=== PATIENT | female | born 1985 | race Two or more races ===

== ENCOUNTER 2024-08-24 06:06 | Emergency (ER) | payer MEDICAID, SELFPAY ==
[2024-08-24 06:13] VITALS: BP 136/98; PULSE 111; RESP 19; TEMP 36.9; O2SAT 96; BMI 45.1
--- NOTE | 2024-08-24 06:21 | XR_ITS ---
Examination: PA lateral chest 2 views Technique: Upright PA lateral chest 2 views Exam date and time: September 03, 2024 0628 hrs. Comparison May 12, 2021 Indications: Onset chest pain today Findings: Normal heart size Mild elevation right hemidiaphragm No pneumonia or pulmonary edema The osseous structures are intact Impression: No active disease
--- NOTE | 2024-08-24 06:21 | EKG_ITS ---
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
--- NOTE | 2024-08-24 06:21 | PD.EDRME ---
Rapid Medical Screening Exam RME Arrival date/time: 08/24/24 06:06 39-year-old female with past medical history of diabetes and high blood pressure presents emergency department complaining near fainting episode, dry mouth, and mild chest pain since this morning. Chief Complaint: Syncope / Near Syncope Time Seen by Provider: 08/24/24 06:26 Vital signs: Vital Signs Temperature 98.4 F 08/24/24 06:13 Pulse Rate 111 H 08/24/24 06:13 Respiratory Rate 19 08/24/24 06:13 Blood Pressure 136/98 H 08/24/24 06:13 Pulse Oximetry (%) 96 08/24/24 06:13 Oxygen Delivery Method Room Air 08/24/24 06:13
--- NOTE | 2024-08-24 06:56 | PD.EDRME ---
Rapid Medical Screening Exam RME Arrival date/time: 08/24/24 06:06 39-year-old female with past medical history of diabetes and hypertension presents emergency department complaining of near fainting episode, dry mouth, and mild chest pain that started this morning. Chief Complaint: Syncope / Near Syncope Time Seen by Provider: 08/24/24 06:26 Vital signs: Vital Signs Temperature 98.4 F 08/24/24 06:13 Pulse Rate 111 H 08/24/24 06:13 Respiratory Rate 19 08/24/24 06:13 Blood Pressure 136/98 H 08/24/24 06:13 Pulse Oximetry (%) 96 08/24/24 06:13 Oxygen Delivery Method Room Air 08/24/24 06:13
[2024-08-24 07:32] LABS: Basophils % (Auto) 1 % (0-2.5); Eosinophils # (Auto) 0.2 Thou/mm3 (0.0-0.5); Eosinophils % (Auto) 4 % (0-10); Hematocrit 42.5 % (36.0-46.0); Hemoglobin 14.6 g/dL (12.0-16.0); Immature Granulocytes % (Auto) 0 % (0-0); Immature Granulocytes Auto 0.01 Thou/mm3 (0.00-0.00); Lymphocytes # (Auto) 1.5 Thou/mm3 (1.0-4.8); Lymphocytes % (Auto) 23 % (10-50); Mean Corpuscular HGB Conc 34.4 g/dl (31.0-37.0); Mean Corpuscular Volume 79 fL (80-100); Monocytes # (Auto) 0.6 Thou/mm3 (0.0-0.8); Monocytes % (Auto) 10 % (0-12); Neutrophils % (Auto) 63 % (37-80); Nucleated Red Blood Cell % 0 /100 WBC (0); Platelet Count 288 Thou/mm3 (140-440); RDW Standard Deviation 40.2 fL (36.4-46.3); White Blood Count 6.4 Thou/mm3 (3.6-11.0)
[2024-08-24 07:34] LABS: Amphetamine/Methamp Scrn,U Negative (Negative); Barbiturate Screen,Urine Negative (Negative); Benzodiazepines Screen,Urine Negative (Negative); Benzoylecgonine Screen, Ur Negative (Negative); Fentanyl Screen,Urine Negative (Negative); Opiate Screen,Urine Negative (Negative); THC Screen,Urine Negative (Negative)
[2024-08-24 07:59] LABS: Alanine Aminotransferase 56 U/L (10-49); Albumin, Serum 4.7 gm/dL (3.5-5.0); Albumin/Globulin Ratio 1.6 (1.2-2.2); Alkaline Phosphatase 75 U/L (46-116); Anion Gap 11 (7-16); Aspartate Amino Transferase 39 U/L (0-34); BUN/Creatinine Ratio 10 Ratio (12-20); Bilirubin,Total 0.5 mg/dL (0.3-1.2); Blood Urea Nitrogen 7 mg/dL (9-23); Calcium 9.4 mg/dL (8.3-10.6); Calcium (Corrected) 9.4 mg/dL (8.5-10.1); Carbon Dioxide 21.8 mMol/L (20.0-31.0); Chloride 103 mMol/L (98-107); Creatinine (Component) 0.7 mg/dL (0.6-1.3); Estimated Creatinine Clearance 122.7 mL/min (>60); Globulin 2.9 gm/dL (2.3-3.5); Glucose 106 mg/dL (74-106); Osmolality,Calculated 269 (275-295); Sodium 136 mMol/L (136-145); Total Protein 7.6 gm/dL (5.7-8.2); Troponin I < 0.020 ng/mL (0.0-0.045); eGFR > 60 See Note
--- NOTE | 2024-08-24 08:17 | PD.EDSYNC ---
ED Syncope RME/HPI General Chief Complaint: Syncope / Near Syncope Stated Complaint: FAINTED IN THE MORNING, DIZZINESS, SHAKING, Time Seen by Provider: 08/24/24 06:26 Source: patient Arrival date/time: 08/24/24 06:06 39-year-old female with past medical history of diabetes and hypertension presents emergency department complaining of near fainting episode, dry mouth, and mild chest pain that started this morning. Patient reports last bowel movement was 3 days ago. Patient denies any fever, chills, nausea vomiting, diarrhea, or any other associated symptom. Mode of arrival: ambulatory Limitations: no limitations RME / HPI RME / HPI narrative: 08/24/24 06:06 39-year-old female with past medical history of diabetes and hypertension presents emergency department complaining of near fainting episode, dry mouth, and mild chest pain that started this morning. Related Data Home Medications ?Medication ?Instructions ?Recorded ?Confirmed ferrous sulfate 325 mg (65 mg 325 mg PO QDAY 02/15/22 05/25/22 iron) tablet (FeroSul) vit no.95-ferrous 1 tab PO QDAY 02/15/22 05/25/22 fumarate 28 mg-folic acid 800 mcg tablet () Previous Rx's ?Medication ?Instructions ?Recorded docusate sodium 100 mg capsule 100 mg PO BID 3 days #6 caps 08/24/24 Allergies Allergy/AdvReac Type Severity Reaction Status Date / Time diphenhydramine Allergy Intermediate Rash Verified 08/24/24 06:07 Review of Systems Review of Systems Systems Reviewed: All systems reviewed, normal except as documented Constitutional Constitutional: Reports system reviewed and no additional complaints, except as documented, Denies body ache(s), Denies chills, Denies fever(s) and Reports other (Near syncope) Eyes Eyes: Reports system reviewed and no additional complaints, except as documented and Denies change in vision ENT Ears, Nose, Mouth, and Throat: Reports system reviewed and no additional complaints, except as documented, Denies disequilibrium, Denies dizziness, Denies sore throat, Denies vertigo and Reports other (Dry mouth) Cardiovascular Cardiovascular: Reports system reviewed and no additional complaints, except as documented, Reports chest pain and Denies dyspnea Respiratory Respiratory: Reports system reviewed and no additional complaints, except as documented, Denies chest congestion, Denies cough and Denies dyspnea Gastrointestinal Gastrointestinal: Reports system reviewed and no additional complaints, except as documented, Denies abdominal pain, Denies nausea and Denies vomiting Musculoskeletal Musculoskeletal: Reports system reviewed and no additional complaints, except as documented, Denies abnormal gait and Denies arthralgias Integumentary/Breasts Skin/Breast: Reports system reviewed and no additional complaints, except as documented, Denies erythema, Denies rash and Denies wounds Neurologic Neurologic: Reports system reviewed and no additional complaints, except as documented, Denies abnormal gait, Denies disequilibrium, Denies dizziness and Denies vertigo Past Medical History Past Medical History NEUROLOGIC: Negative Neurological Disorders or Seizures CARDIAC: Negative Cardiac Disorders or Congestive Heart Failure RESPIRATORY: Negative Chronic Obstructive Pulmonary Disease (COPD) GASTROINTESTINAL: Positive Gastrointestinal Disorders, Gastroesophageal Reflux Disease and Obesity GENITOURINARY: Negative Genitourinary Disorders or Renal Disease MUSCULOSKELETAL: Negative Musculoskeletal Disorders ENDOCRINE: Negative Endocrine Disorders, Diabetes Mellitus Type 1 or Diabetes Mellitus Type 2 HEMATOLOGIC: Negative Blood Disorders PSYCHO/SOCIAL: Positive Depression and Anxiety OTHER HISTORY: Positive Hospitalization (CHILDBIRTH); Negative Autoimmune Disease, Falls, Blood Transfusions, Blood Transfusion Reaction, Anesthesia Reactions or Cancer Family History FAMILY HISTORY: Positive Family Cardiac Disorders (MOTHER:HTN, HIGH CHOLESTEROL) and Family Surgery; Negative Family Psychiatric Problems, Family Respiratory Disorders, Family Gastrointestinal Problems, Family Cancer or Family Anesthesia Reaction Surgical History SURGICAL: Positive Section Social History SMOKING STATUS: Never smoker SUBSTANCE USE: does not use ED Exam General Limitations: Present no limitations General appearance: Present alert and in no apparent distress Head Head exam: Present atraumatic Eye Eye exam: Present normal appearance, PERRL and EOMI ENT ENT exam: Present normal exam, normal oropharynx and mucous membranes moist Neck Neck exam: Present normal inspection, full ROM and trachea midline Chest Chest inspection: Present normal inspection and symmetric chest wall rise Respiratory Respiratory exam: Present normal lung sounds bilaterally Cardiovascular Cardiovascular exam: Present regular rate, normal rhythm and normal heart sounds Abdominal Exam Abdominal exam: Present soft and normal bowel sounds Extremities Exam Extremities exam: Present normal inspection and full ROM Back Exam Back exam: Present normal inspection and full ROM Neurological Exam Neurological exam: Present alert, oriented X3 and CN II-XII intact Psychiatric Psychiatric exam: Present normal affect and normal mood Skin Skin exam: Present warm, dry, intact and normal color Course Quality Measures none Orders Category Date Time Status EKG (ED ONLY) *Do not use* NOW Care 11/10/24 06:21 Completed EKG (ED ONLY) *Do not use* NOW Care 08/24/24 06:44 Completed EKG (ED Only) Stat Exams 08/24/24 06:21 Stop Req EKG (ED Only) Stat Exams 08/24/24 06:44 Ordered XR chest 2V Stat Exams 08/24/24 06:21 Completed CBC Stat Lab 08/24/24 07:26 Completed Comprehensive Metabolic Panel Stat Lab 08/24/24 07:26 Completed Drug Screen,Urine Stat Lab 08/24/24 07:19 Completed Troponin I Stat Lab 08/24/24 07:26 Completed Potassium Chloride [K-Dur] Med 08/24/24 08:16 Discontinued 40 meq PO X1 ONE Vital Signs Vital signs: Vital Signs Temperature 98.4 F 08/24/24 06:13 Pulse Rate 111 H 08/24/24 06:13 Respiratory Rate 19 08/24/24 06:13 Blood Pressure 136/98 H 08/24/24 06:13 Pulse Oximetry (%) 96 08/24/24 06:13 Oxygen Delivery Method Room Air 08/24/24 06:13 96% room air within normal limits. Procedures -ED EKG Interpretation #1: Date of EK08/24/24 Time of EK:30 Rate: 100 Interpretation: Interpreted by me EKG Impression: Normal sinus rhythm, No acute ST-T changes, No ectopy, No ischemic changes and Normal QRS Syncope MDM Narrative MDM Narrative:: 39-year-old female with past medical history of diabetes and hypertension presents emergency department complaining of near fainting episode, dry mouth, and mild chest pain that started this morning. Patient reports last bowel movement was 3 days ago. Patient denies any fever, chills, nausea vomiting, diarrhea, or any other associated symptom. Patient appears nontoxic and hemodynamically stable. Patient GCS of 15 with appropriate behavior. Patient in no respiratory distress. CBC was unremarkable for any leukocytosis. CMP was unremarkable other than hypokalemia at 3.0 which was corrected with 40M EQ oral potassium. Troponin within normal limits and EKG sinus tachycardia. Patient's abdomen is soft and nontender. Patient mentioned had no bowel movement for 3 days and discharged home on stool softener docusate. Patient instructed to follow-up with primary care provider upon discharge and return to emergency department for any worsening symptoms or as needed. Patient data External records reviewed:: [facility] previous records Clinical information provided by:: patient Social determinants that could affect healthcare access:: none Patient has the following chronic illnesses:: See chart How is presenting disease/condition affected by chronic disease/condition?: uneffected by Evaluation data The following diagnostics were reviewed and interpreted by me:: lab results, radiology exam(s) and EKG tracing(s) Lab and/or radiology exams considered but not ordered:: Ordered Interpretation Summary: Interpreted by me Medications / Prescriptions Medications or Prescriptions considered but not ordered:: Ordered Medication administrations:: Medication Administration History Discontinued Medications Potassium Chloride (Potassium Chloride 20 Meq Tabcr) 40 meq PO X1 ONE Stop: 08/24/24 08:17 Last Admin: 08/24/24 08:41 Dose: 40 meq Documented By: DO Comments: scanner not working Given Consultations Consultation(s) initiated? (list below): No Diagnosis Syncope Differential Diagnosis: syncope due to orthostatic hypotension, vasovagal syncope and dehydration Most likely diagnosis given after review of the tests above:: Noncardiac chest pain Hypokalemia Admission Indicated Admission indicated?: not indicated Admission Request Was there a request for admission?: No Disposition Plan Disposition Plan: Discharge Discharge Attestation Discharge Attestation: The patient and all family members were given an opportunity to ask questions and understood the discharge instructions. Discharge instructions specifically effects, indications for sooner follow up or return to the emergency department, and the expected course of current diagnosis. Patient condition: Stable Discharge Plan Plan Patient Disposition: HOME (Self Care) Disposition Comment: Stable Prescriptions/Referrals Prescriptions/Med Rec: New docusate sodium 100 mg capsule 100 mg PO BID 3 Days Qty: 6 0RF No Action ferrous sulfate [FeroSul] 325 mg (65 mg iron) tablet 325 mg PO QDAY PNV b#95-ferrous fumarate-FA [] 28 mg iron- 800 mcg tablet 1 tab PO QDAY Referrals: Amanuel Hernandez PA-C [Primary Care Provider] - In 1 week Problem List Clinical Impression: Chest pain, non-cardiac, Acute hypokalemia Patient/Caregiver Discharge Instructions Discharge Activity: activity as tolerated Education Materials: ED Chest Pain, Noncardiac Additional Instructions: Follow-up with primary care provider in 24 to 48 hours. Return to emergency department for any worsening symptoms or as needed. Print Language: Kinyarwanda Stand Alone Forms: [employer] Award Info., Work/School Release, Patient Portal Info Letter PA/TECHNOLOGY APPLICATIONS CONSULTANT Supervising Physician PA/TECHNOLOGY APPLICATIONS CONSULTANT Supervising Physician: Dr. Moore
[2024-08-24] MEDS: POTASSIUM CHLORIDE 20 mEq TABCR 40 MEQ PO (08:41)
== END 2024-08-24 08:44 | disposition home or self-care (01) ==
PROVIDERS: Emergency Provider Emergency Medicine; PCP Physician Assistant
DX: E87.6 Hypokalemia (principal); R07.89 Other chest pain; R00.0 Tachycardia, unspecified; I10 Essential (primary) hypertension
CPT/HCPCS: 36415; 71046; 80053; 80307; 84484; 85025; 93005; 99283; A9270

== ENCOUNTER → 2025-06-02 | Outpatient (CLI) | payer MEDICAID, SELFPAY ==
--- NOTE | 2025-06-02 13:15 | XR_ITS ---
Examination: Screening digital mammography, bilateral Computer aided detection 3-D breast Tomosynthesis, bilateral Date and time of exam: June 02, 2025 1243 hours Indication: Screening Technique: Nonmagnified MLO, CC views of the breasts to been obtained, reconstructed from 3-D Tomosynthesis images. R2 computer aided detection program utilized for evaluation of suspicious masses and/or abnormal calcifications. 3-D Tomosynthesis images obtained. Findings: The breasts are heterogeneously dense, which may obscure small masses Benign calcifications. No suspicious masses Prominent left axillary lymph node Impression: BI-RADS Category 0: Incomplete: Need additional imaging evaluation Prominent left axillary lymph node, recommend bilateral breast sonography follow-up
== END | disposition home or self-care (01) ==
PROVIDERS: PCP Physician Assistant Medical; Referring Provider Physician Assistant Medical; Visit Provider Physician Assistant Medical
DX: Z12.31 Encounter for screening mammogram for malignant neoplasm of breast (principal); R92.8 Other abnormal and inconclusive findings on diagnostic imaging of breast
CPT/HCPCS: 77063; 77067